=== PATIENT | male | born 1950 | race Caucasian/White ===

== ENCOUNTER 2023-06-12 07:45 | Day surgery (SDC) | payer MEDICARE, OTHER ==
[2023-06-12] MEDS: Lactated Ringers 1,000 ML IV SCH (08:06)
[2023-06-12] MEDS ORDERED: fentaNYL 50 MCG/ML SDV ONE (08:55)
[2023-06-12] MEDS ORDERED: Midazolam 1 MG/ML 2 ML SDV ONE (08:55)
[2023-06-12] MEDS ORDERED: Ketamine 200 MG/20 ML MDV ONE (08:55)
[2023-06-12] MEDS ORDERED: Propofol 200 MG/20 ML SDV ONE (08:55)
[2023-06-12] MEDS ORDERED: Flumazenil 0.1 MG/ML 10 ML MDV ONE (08:55)
[2023-06-12] MEDS ORDERED: Lidocaine 2% 20 ML MDV ONE (08:55)
== END 2023-06-12 10:32 | disposition home or self-care (01) ==
LOC: CC.SDS 07:45
PROVIDERS: ATTEND Family Medicine
DX: D12.5 Benign neoplasm of sigmoid colon (principal); K22.70 Barrett's esophagus without dysplasia; I10 Essential (primary) hypertension; E78.2 Mixed hyperlipidemia; K59.00 Constipation, unspecified; Z79.82 Long term (current) use of aspirin; Z79.899 Other long term (current) drug therapy
CPT/HCPCS: 00813; 87081; 88305; 99100; J2250; J2704; J3010; J3490; J7120